=== PATIENT | female | born 1960 | race Caucasian/White ===

== ENCOUNTER 2023-12-14 16:35 | Emergency (ER) | payer OTHER, SELFPAY ==
[2023-12-14 16:42] VITALS: BP 134/75
--- NOTE | 2023-12-14 17:43 | ED.GENMED ---
History of Present Illness
General
Chief Complaint: Musculo-Skeletal Complaint
Source: patient
Exam Limitations: none
Time Seen by Provider: 12/14/23 17:04
Nursing documentation reviewed up to this point in time: agreed with
History of Present Illness
History of Present Illness:
Patient is a 63 yr old female who presents to the ER complaining of right leg pain. She reports since yesterday evening she noticed pain in her right lower leg which continued until today. She denies any actual injury. She does report she was
standing a lot yesterday because she was working the [employer].
She does have history of hardware and surgery in this tib-fib area in 2013 and also has had surgery on her femur both in 2020 2021. She denies any history of DVT PE. She denies any recent fever or chills. She does report she sees a little mild
erythema to the area but denies any pain fever chills.
She reports she has some chronic mild swelling in her right leg but swelling has increased.
Past History
Past History
ED Past Medical History: None
ED Past Surgical History: Orthopedic
Social History
Tobacco: Non-smoker
Alcohol: None
Drug: None
Personal: Single
Living: with family
Review of Systems
Review of Systems
Allergies reviewed?: Yes
All Other Systems: ROS reviewed and negative except as documented in HPI and ROS
Constitutional: Reports no symptoms; Denies fever, fatigue or chills
Musculoskeletal: Reports other (right lower leg pain/swelling )
Skin: Reports other (slight erythema to right lower leg )
Neurological: Reports no symptoms
Psychiatric: Reports no symptoms
Phy Exam
General Physical Exam
General Presentation: no apparent distress
General age: appears stated age
General Skin: warm and dry
General Habitus: normal
General Mental: alert
General Hydration: appears well hydrated
Neurological Exam
Neurological Exam: alert and oriented x3
Musculoskeletal Exam
Musculoskeletal Exam: other ( rle with strong pulses + mild erythema to right anterior lower leg )
Course
Orders/Labs/Results
Orders:
Orders
12/14/23 16:45
Tibia/Fibula, Right 2 View [CR Leg Tibia/fibula Right 2 Vw] Urgent
Comment:
Reason For Exam: pain
12/14/23 17:43
Venous Doppler Lwr Ext Rt [US Periph Venous LOWER Ext RT] Urgent
Comment:
Reason For Exam: swelling
12/14/23 17:52
Complete Blood Count/With Diff Urgent
Comprehensive Metabolic Panel Urgent
12/14/23 18:43
Cephalexin Monohydrate [Keflex] 500 mg PO NOW STA
Abnormal Lab Results
12/14/23
17:52
MPV 11.5 H fL
(7.4-10.4)
Abs Immat Gran (auto) 0.1 H 10^3/uL
(0-0.05)
Absolute Monos (auto) 0.7 H 10^3/uL
(0.1-0.6)
Immature Gran % 1.0 H %
(0-0.5)
BUN 18 H mg/dl
(7-17)
Glucose 149 H mg/dl
(70-99)
12/14/23 17:52
12/14/23 17:52
Vital Signs
Initial and Last Documented VS:
Initial Vital Signs
Temp Pulse Resp BP Pulse Ox
98.3 F 69 16 134/75 99
12/14/23 16:42 12/14/23 16:42 12/14/23 16:42 12/14/23 16:42 12/14/23 16:42
Last Documented Vital Signs
Temp Pulse Resp BP Pulse Ox
98.3 F 60 20 166/90 100
12/14/23 16:42 12/14/23 19:17 12/14/23 19:17 12/14/23 19:17 12/14/23 19:17
MDM/Problems Addressed
Differential Diagnosis Includes:
Not limited to DVT, dependent edema, mild cellulitis
MDM/Problems Addressed:
Patient is a 63-year-old female who has a prior surgical repair of right tibia fibula/in 2013 and prior femur repair with from fracture in 2020 2021. She complained of pain to her right anterior lower leg since yesterday. She was sitting for
prolonged time because she was working with the [employer] yesterday. She reports her leg was in the dependent position. Today she has more swelling than normal and has some discomfort very minimally red to the right anterior lower leg. Her
leg is swollen. She is afebrile denies any fevers or white count is normal. She is a diabetic her blood sugar was 149 however normal kidney function. Her x-rays are negative and her ultrasound is negative. Will treat for possibly very
minimal/early cellulitis I discussed close outpatient follow-up with family doctor for repeat ultrasound and reevaluation within the next week.
*Radiology
Radiology exam reviewed: radiology read reviewed
*Pulse Oximetry
Patient hypoxic: no
*Critical Care Note
Total Time (30-74mins, 75-104mins- exclusive of procedures): Not Applicable
ED Attending Note
-
Portions of this chart may have been created with voice recognition software.� Occasional wrong word or��sound alike� substitutions may have occurred due to the inherent limitations of voice recognition software.
Discharge Plan
Departure
Patient Disposition: Home (Routine Discharge)
Date of Disposition: 12/14/23
Time of Disposition: 19:00
Patient with high blood pressure during this ER visit?: Yes
Condition: Fair
Covid-19: Not Applicable
Discharge Problem:
Cellulitis
Instructions: Cellulitis (Skin Infection), Adult ED
Prescriptions:
New
cephalexin 500 mg capsule
500 mg PO Q6H Qty: 28 0RF
No Action
oxycodone 5 mg tablet
5 mg PO Q8H PRN (Reason: severe pain) Qty: 14 0RF
lidocaine 5 % adhesive patch,medicated
1 patch topical DAILY Qty: 15 0RF
lansoprazole 30 MG capsule,delayed release(DR/EC)
30 mg PO DAILY
Patient Comments:
while you are taking aspirin
nadolol 40 MG tablet
40 mg PO DAILY
topiramate [Topamax] 25 MG tablet
75 mg PO HS
simvastatin 40 MG tablet
40 mg PO HS
topiramate [Topamax] 50 MG tablet
50 mg PO DAILY
metformin 500 MG tablet
500 mg PO BID AT 0800,1700 Qty: 0 0RF
tizanidine 2 MG tablet
2 mg PO HS PRN (Reason: muscle spasm) Qty: 30 0RF
polyethylene glycol 3350 17 GRAMS powder in packet
17 grams PO DAILY Qty: 0 0RF
aspirin 325 MG tablet
325 mg PO BID Qty: 0 0RF
Rx Instructions:
w food
acetaminophen [Tylenol Extra Strength] 500 MG tablet
1,000 mg PO Q6HPRN PRN (Reason: migraine) Qty: 0 0RF
gdlqiwadrn-eiejxoibzcoyk-wjll 1 TAB tablet
1 tab PO Q4HPRN PRN (Reason: MIGRAINE) Qty: 0 0RF
bisacodyl [OneLAX Bisacodyl] 10 MG suppository
10 mg ND DAILYPRN PRN (Reason: constipation) Qty: 0 0RF
docusate sodium 100 MG capsule
100 mg PO BID Qty: 0 0RF
oxycodone 5 MG tablet
5 mg PO Q4HPRN PRN (Reason: moderate-severe pain) Qty: 90 0RF
Rx Instructions:
dx fractures
Referrals:
Thierry Lorenz DO [Family Provider] -
Activity Restrictions/Additional Instructions:
As discussed a prescription for antibiotic, Keflex was sent to your pharmacy take as every 6 hours for the next 7 days. Closely follow-up with your family doctor for reevaluation in the next several days for reevaluation of your symptoms. Return
if any worsening of symptoms of increased swelling redness pain fever chills
Also if swelling continues it is recommended that you have a repeat ultrasound in 1 week.
Interventions
Interventions:
*Risk Screen - Suicide Last Done: 12/14/23 17:28
*General Assessment Last Done: 12/14/23 17:28
*Neglect/Abuse Screening Last Done: 12/14/23 17:28
ED- Fall Risk Assessment Last Done: 12/14/23 17:28
*ED COVID-19 Vaccine History Last Done: 12/14/23 17:28
*Nursing Disposition Last Done: 12/14/23 19:17
ED-Musculoskeletal Assessment Last Done: 12/14/23 17:28
Discharge Date and Time
Discharge Date/Time: 12/14/23 19:18
Print Language: BULGARIAN
[2023-12-14 18:05] LABS: % Basophils 0.6 % (0-2); % Eosinophils 3.5 % (0-6); % Lymphocytes 29.3 % (20.5-51.1); % Monocytes 8.3 % (1.7-9.3); % Neutrophils 57.3 % (42.2-75.2); Absolute Basophils 0.1 10^3/uL (0-0.2); Absolute Eosinophils 0.3 10^3/uL (0-0.7); Absolute Immature Granulocytes 0.1 10^3/uL (0-0.05); Absolute Lymphocytes 2.4 10^3/uL (1.2-3.4); Absolute Monocytes 0.7 10^3/uL (0.1-0.6); Absolute Neutrophils 4.8 10^3/uL (1.4-6.5); Hematocrit 38.2 % (37.0-47.0); Hemoglobin 13.2 g/dL (12.0-16.0); Mean Corp Hgb Conc. 34.6 g/dL (33.0-37.0); Mean Corpuscular Hgb 30.6 pg (27.0-31.0); Mean Corpuscular Volume 88.4 fL (81.0-99.0); Mean Platelet Volume 11.5 fL (7.4-10.4); Nucleated Red Blood Cells % 0 %; Platelet Count 261 10^3/uL (130-400); Red Blood Cell Count 4.32 10^6/uL (4.20-5.40); Red Cell Dist. Width 13.7 % (11.5-14.5); White Blood Cell Count 8.3 10^3/uL (4.8-10.8)
[2023-12-14 18:19] LABS: ALT (SGPT) 16 U/L (0-35); AST (SGOT) 16 U/L (14-36); Albumin 4.1 g/dl (3.5-5.0); Alkaline Phosphatase 86 U/L (38-126); Blood Urea Nitrogen 18 mg/dl (7-17); Calcium 9.5 mg/dl (8.4-10.2); Carbon Dioxide 23 mmol/L (22-30); Chloride 107 mmol/L (98-107); Glucose 149 mg/dl (70-99); Potassium 4.5 mmol/L (3.5-5.1); Sodium 141 mmol/L (135-145); Total Bilirubin 0.3 mg/dl (0.2-1.3); Total Protein 6.8 g/dl (6.3-8.2); eGFR > 60.00
[2023-12-14] MEDS: KEFLEX 500 MG PO (18:58)
[2023-12-14 19:17] VITALS: BP 166/90
== END 2023-12-14 19:18 | disposition home or self-care (01) ==
LOC: EMR 16:35
PROVIDERS: Nurse Practitioner; EMERGENCY PHYSICIAN Emergency Medicine; FAMILY PHYSICIAN Family Medicine
DX: L03.115 Cellulitis of right lower limb (principal); E11.9 Type 2 diabetes mellitus without complications
CPT/HCPCS: 99284; 73590; 80053; 85025; 93971

== ENCOUNTER → 2024-03-13 12:34 | Outpatient (REF) | payer OTHER, SELFPAY | LOC: RAD 12:34 | PROVIDERS: ATTENDING PHYSICIAN Nurse Practitioner Family; FAMILY PHYSICIAN Student in an Organized Health Care Education/Training Program | DX: M79.604 Pain in right leg (principal); M25.472 Effusion, left ankle; M79.642 Pain in left hand; R21 Rash and other nonspecific skin eruption | CPT/HCPCS: 72110; 73120; 73610 ==

== ENCOUNTER → 2024-09-17 10:21 | Outpatient (REF) | payer MEDICARE, SELFPAY | LOC: RAD 10:21 | PROVIDERS: ATTENDING PHYSICIAN Student in an Organized Health Care Education/Training Program; FAMILY PHYSICIAN Family Medicine | DX: I73.00 Raynaud's syndrome without gangrene (principal); M25.472 Effusion, left ankle; M79.604 Pain in right leg; M79.641 Pain in right hand; M79.642 Pain in left hand; R21 Rash and other nonspecific skin eruption; R76.8 Other specified abnormal immunological findings in serum; Z13.820 Encounter for screening for osteoporosis; Z78.0 Asymptomatic menopausal state; M85.89 Other specified disorders of bone density and structure, multiple sites | CPT/HCPCS: 77080; 93005 ==